=== PATIENT | male | born 1995 | race African-American/Black ===

== ENCOUNTER 2017-08-12 17:59 | Emergency (ER) | payer MEDICAID ==
[~2017-08-12] VITALS: Ht 172.7 cm; Wt 65.8 kg
[2017-08-12 20:32] VITALS: BP 115/54
[2017-08-12] MEDS ORDERED: ONDANSETRON ODT 4 MG TAB PO ONE (21:15)
[2017-08-12] MEDS ORDERED: cefTRIAXone SOD 1,000 MG VL ONE (23:22)
[2017-08-12] MEDS ORDERED: LIDOCAINE 1% HCL (LOCAL ANESTH.) INJ 20ML MDV ONE (23:23)
[2017-08-12] MEDS ORDERED: cefTRIAXone SOD 1,000 MG VL IM ONE (23:30)
== END 2017-08-12 23:51 | disposition home or self-care (01) ==
LOC: ER 17:59
DX: J02.9 Acute pharyngitis, unspecified (principal); R11.2 Nausea with vomiting, unspecified; M54.2 Cervicalgia
CPT/HCPCS: 70360; 70490; 96372; 99284; J0696; J2001; Q0162

== ENCOUNTER 2021-11-23 11:59 | Emergency (ER) | payer MEDICAID ==
[~2021-11-23] VITALS: Ht 190.5 cm; Wt 59.0 kg
[2021-11-23] MEDS ORDERED: SODIUM CHLORIDE 0.9% 1,000 ML IVB ONE (12:15)
[2021-11-23 12:53] VITALS: BP 102/57
[2021-11-23 13:32] LABS: Basophils # (auto) 0 10 ^3/uL (0-0.2); Basophils % (auto) 0.2 % (0.0-2.0); Eosinophils # (auto) 0.3 10 ^3/uL (0-0.8); Hematocrit 42.2 % (41.0-53.0); Hemoglobin 14.4 g/dL (13.5-17.5); Lymphocytes # (auto) 0.9 10 ^3/uL (0.4-5.4); Lymphocytes % (auto) 9.1 % (10.0-50.0); Mean Corpuscular Hemoglobin 31.6 pg (28.0-32.0); Mean Corpuscular Hgb Conc. 34.1 g/dL (32.0-36.0); Mean Corpuscular Volume 92.8 fL (80.0-100.0); Monocytes # (auto) 0.6 10 ^3/uL (0-1.3); Monocytes % (auto) 5.9 % (0.0-12.0); Neutrophils % (auto) 81.8 % (37.0-80.0); Nucleated Red Blood Cells % 0.1 %; Red Blood Cells 4.55 10^6/uL (4.5-5.90); Red Cell Distribution Width 12.6 % (11.8-14.3); White Blood Cell 9.8 10^3/uL (4.4-10.8)
[2021-11-23 13:46] LABS: Alanine Aminotransferase 17 U/L (16-61); Albumin 3.4 g/dL (3.4-5.0); Anion Gap 5 (5-15); Aspartate Aminotransferase 13 U/L (15-37); BUN/Creatinine Ratio 9.9; Blood Alcohol < 3.0 mg/dL (0-5); Blood Urea Nitrogen 11 mg/dL (7-18); Calcium 8.4 mg/dL (8.5-10.1); Carbon Dioxide 26 mmol/L (21-32); Chloride 110 mmol/L (98-107); GFR African American 106 mL/min; GFR Non-African American 87 mL/min; Glucose 106 mg/dL (74-106); Potassium 4.6 mmol/L (3.5-5.1); Sodium 141 mmol/L (136-145)
[2021-11-23 13:49] LABS: Alkaline Phosphatase 39 U/L (45-117); Bilirubin, Total 0.6 mg/dL (0.2-1.0); Total Protein 6.2 g/dL (6.4-8.2)
== END 2021-11-23 15:05 | disposition home or self-care (01) ==
LOC: EDBD 11:59 → ER 11:59 → EDUNIT# 11:59 → ER 15:05
DX: F12.10 Cannabis abuse, uncomplicated (principal)
CPT/HCPCS: 36415; 80053; 80320; 85025; 93005; 96360; 96361; 99284; J7030

== ENCOUNTER 2023-02-02 19:05 | Emergency (ER) | payer MEDICAID ==
[~2023-02-02] VITALS: Ht 177.8 cm; Wt 64.9 kg
[2023-02-02 19:20] VITALS: BP 128/67
[2023-02-02] MEDS ORDERED: HYDROcodone-ACET 5/325MG TAB PO ONE (19:30)
[2023-02-02] MEDS ORDERED: TETANUS-DIPTH-ACEL PERTUSSIS 0.5ML SYR Tdap IM ONE (19:30)
[2023-02-02] MEDS ORDERED: KETOROLAC TROMETH 60MG/2ML VIAL IM ONE (19:30)
[2023-02-02] MEDS ORDERED: IBUP-1455 PO (19:40)
[2023-02-02] MEDS ORDERED: HYDR-4902 PO (19:40)
[2023-02-02] MEDS ORDERED: CEPH500C PO (19:40)
[2023-02-02] MEDS ORDERED: BACIOIN49 OP (19:40)
== END 2023-02-02 20:04 | disposition home or self-care (01) ==
LOC: ER 19:05
DX: L03.011 Cellulitis of right finger (principal); F12.10 Cannabis abuse, uncomplicated
CPT/HCPCS: 90471; 90715; 96372; 99284; J1885